=== PATIENT | male | born 1995 | race Caucasian/White ===

== ENCOUNTER → 2016-08-05 | Day surgery (SDC) | payer BC, OTHER ==
[2016-07-29 14:05] VITALS: Ht 200.7 cm; Wt 159.1 kg
[~2016-08-05] VITALS: Ht 200.7 cm; Wt 159.1 kg
[~2016-08-05] MED LIST: ADAL40KI SC; FENTANYL CITRATE INJ 50 MCG/1 ML 2 ML VIAL ONE; LIDOCAINE HCL 2% 2 ML VIAL (20MG/ML) ONE; MRC50 PO; PROPOFOL IV EMULSION 10 MG/ML 20 ML VIAL IV ONE; SODIUM CHLORIDE 0.9% 500ML 500 ML IV ONE; SYMIN/8045 INH
--- NOTE | 2016-08-05 14:51 | Endo History and Physical ---
History & Physical Date of Service: August 05, 2016. Chief Complaint: Crohn's Disease Referring Physician: Live Tafoya History of Present Illness 21 yo CM who presents for Colonoscopy secondary to Crohn's Disease. Past Surgical History Hx Cardiac Surgery: No Hx Internal Defibrillator: No Hx Pacemaker: No Hx Abdominal Surgery: No Hx of Implantable Prosthesis: No Hx Post-Op Nausea and Vomiting: No Hx Cancer Surgery: No Hx Thoracic Surgery: No Hx Orthopedic: Yes (RT THIGH BIOPSY, LT ANKLE SURGERY WITH HARDWARE) Hx Urinary Tract Surgery: No Family History None Social History Smoking Status: Never Smoker Hx Substance Use: No Hx Alcohol Use: No Allergies Coded Allergies: Diphenhydramine (Verified Allergy, Mild, swollen throat, 07/29/16) NUTS (Verified Allergy, Unknown, THROAT SWELLING, 07/29/16) Current Medications Reported Home Medications Medications Dose Route/Sig Max Daily Dose Days Date Category Humira Pen (Adalimumab) 40 Mg/0.8 Ml Kit 40 Mg SC [id number] 07/29/16 Reported Mercaptopurine 50 Mg Tab 2 Tabs PO QAM 11/09/15 Reported Symbicort 80/4.5 Inhaler (Budesonide/Formoterol Fumarate) Unknown Strength Aero 1 Puffs INH BID 11/09/15 Reported Vital Signs Weight (Kilograms): 159.09 Height (Feet): 6 Height (Inches): 7 Physical Exam General Appearance: WD/WN, no apparent distress Respiratory/Chest: Auscultation: breath sounds normal Cardiovascular: Heart Auscultation: RRR Abdomen: Bowel Sounds: normal Inspection & Palpation: soft, non-distended, no tenderness, guarding & rebound Assessment and Plan Assessment: 21 yo CM who presents for Colonoscopy secondary to Crohn's Disease. Plan: Proceed with colonoscopy
--- NOTE | 2016-08-05 16:12 | GI REPORT ---
Procedure Date: 08/05/2016 3:20 PM Procedure: Colonoscopy Indications: Disease activity assessment of Crohn's disease of the small bowel and colon Medicines: Monitored Anesthesia Care Complications: No immediate complications. Estimated Blood Loss: Estimated blood loss: none. Procedure: Pre-Anesthesia Assessment: - Prior to the procedure, a History and Physical was performed, and patient medications and allergies were reviewed. The patient's tolerance of previous anesthesia was also reviewed. The risks and benefits of the procedure and the sedation options and risks were discussed with the patient. All questions were answered, and informed consent was obtained. Prior Anticoagulants: The patient has taken no previous anticoagulant or antiplatelet agents. ASA Grade Assessment: III - A patient with severe systemic disease. After reviewing the risks and benefits, the patient was deemed in satisfactory condition to undergo the procedure. After I obtained informed consent, the scope was passed under direct vision. Throughout the procedure, the patient's blood pressure, pulse, and oxygen saturations were monitored continuously. The scope was introduced through the anus and advanced to the terminal ileum. The colonoscopy was performed without difficulty. The patient tolerated the procedure well. The quality of the bowel preparation was good. The terminal ileum, ileocecal valve, appendiceal orifice, and rectum were photographed. Findings: Localized inflammation, moderate in severity and characterized by aphthous ulcerations was found in the terminal ileum. Biopsies were taken with a cold forceps for histology. Inflammation characterized by pseudopolyps was found as medium-sized patches surrounded by normal mucosa in the descending colon. This was mild in severity. Biopsies were taken with a cold forceps for histology. Non-bleeding internal hemorrhoids were found during retroflexion. The hemorrhoids were small. Impression: - Crohn's disease, with ileitis and colitis. Biopsied. - Inflammation was found in the descending colon secondary to Crohn's disease, with ileitis and colitis. Biopsied. - Non-bleeding internal hemorrhoids. Recommendation: - Resume previous diet. - Continue present medications. - Repeat colonoscopy for surveillance based on pathology results. - Return to primary care physician as previously scheduled. Russell Morales DO 08/05/2016 4:12:43 PM This report has been signed electronically. Note Initiated On: 08/05/2016 3:20 PM I attest to the content of the Intraoperative Record and orders documented therein, exceptions below
--- NOTE | 2016-08-05 16:13 | Discharge Instructions ---
Endoscopy Patient Instructions Date / Procedure(s) Performed August 05, 2016. Colonoscopy Allergy Information Coded Allergies: Diphenhydramine (Verified Allergy, Mild, swollen throat, 07/29/16) NUTS (Verified Allergy, Unknown, THROAT SWELLING, 07/29/16) Discharge Date / Findings August 05, 2016. Crohn's Ileocolitis s/p biopsies Internal hemorrhoids Medication Instructions OK to resume all medications today as prescribed Reported Home Medications Medications Dose Route/Sig Max Daily Dose Days Date Category Humira Pen (Adalimumab) 40 Mg/0.8 Ml Kit 40 Mg SC [id number] 07/29/16 Reported Mercaptopurine 50 Mg Tab 2 Tabs PO QAM 11/09/15 Reported Symbicort 80/4.5 Inhaler (Budesonide/Formoterol Fumarate) Unknown Strength Aero 1 Puffs INH BID 11/09/15 Reported Provider Instructions Activity Restrictions - No exercising or heavy lifting for 24 hours. - Do not drink alcohol the day of the procedure. - Do not drive a car or operate machinery until the day after the procedure. - Do not make any important decisions or sign important papers in 24 hours after the procedure. Following Day: - Return to full activity which may include returning to work/school. Diet Start your diet with liquids and light foods (jello, soup, juice, toast). Then eat your usual diet if not nauseated. Treatment For Common After Affects For mild abdominal pain, bloating, or excessive gas: - Rest - Eat lightly - Lie on right side Follow-Up Information Follow-up with Live Tafoya as scheduled Anesthesia Information What You Should Know You have had a procedure that required some medicine to reduce anxiety and discomfort. This treatment is called moderate sedation. After receiving the treatment, you may be sleepy, but you will be able to breathe on your own. The effects of the treatment may last for several hours. Follow these instructions along with Activity/Diet recommendations noted above: * Do NOT do anything where dizziness or clumsiness would be dangerous. * Rest quietly at home today, then you can be up and about tomorrow. * Have a responsible person stay with you the rest of today. * You may have had an I.V. today. If so, you may take the dressing off later today. Recommendations Call your doctor if: * Trouble breathing * Continuous vomiting for more than 24 hours * Temperature above 101 degrees * Severe abdominal pain or bloating * Pain not relieved by pain medicine ordered * There is increased drainage or redness from any incision * A large amount of rectal bleeding greater than 2-3 tablespoons. (If you had a polyp/s removed or have hemorrhoids, a small amount of blood - from the rectum is to be expected.) * You have any unanswered questions or concerns. IN THE EVENT OF A SERIOUS EMERGENCY, GO TO THE NEAREST EMERGENCY ROOM Your discharge instructions were prepared by provider Russell Morales. Patient Instructions Signature Page Momo Dale Patient (or Guardian) Signature/Date: I have read and understand the instructions given to me by my caregivers. Caregiver/RN/Doctor Signature/Date: The above-named patient and/or guardian has received patient instructions on this date. + Original Patient Signature Page (only) stays with chart. Please make copy for patient.
[2016-08-05 16:41] VITALS: BP 127/84; PULSE 55; O2SAT 96
--- NOTE | 2016-08-05 16:49 | Anesthesiology Progress Note ---
Anesthesia Post Op Note Date & Time August 05, 2016 at 16:48 Vital Signs Pain Intensity: 0 Vital Signs Past 12 Hours Date Time Temp Pulse Resp B/P Pulse Ox O2 Delivery O2 Flow Rate FiO2 08/05/16 16:41 55 16 127/84 96 Room Air 08/05/16 16:26 67 16 147/77 97 Room Air 08/05/16 16:11 55 16 111/57 96 Room Air 08/05/16 14:59 36.7 64 20 157/76 97 Room Air Notes Mental Status: alert / awake / arousable, participated in evaluation Pt Amnestic to Procedure: Yes Nausea / Vomiting: adequately controlled Pain: adequately controlled Airway Patency, RR, SpO2: stable & adequate BP & HR: stable & adequate Hydration State: stable & adequate Anesthetic Complications: no major complications apparent
== END | disposition home or self-care (01) ==
LOC: C.GI 14:31
PROVIDERS: ATTEND Internal Medicine
DX: K50.90 Crohn's disease, unspecified, without complications (principal); K64.8 Other hemorrhoids; K63.3 Ulcer of intestine; K52.9 Noninfective gastroenteritis and colitis, unspecified

== ENCOUNTER → 2016-12-25 | Outpatient (CLI) | payer OTHER ==
[~2016-12-25] MED LIST changes: -FENTANYL CITRATE INJ 50 MCG/1 ML 2 ML VIAL ONE; -LIDOCAINE HCL 2% 2 ML VIAL (20MG/ML) ONE; -PROPOFOL IV EMULSION 10 MG/ML 20 ML VIAL IV ONE; -SODIUM CHLORIDE 0.9% 500ML 500 ML IV ONE
--- NOTE | 2016-12-25 17:02 | DIAGNOSTIC IMAGING REPORT ---
L ANKLE MIN 3 VIEWS ROUTINE CLINICAL HISTORY: Left ankle pain. COMPARISON: Left ankle radiographs October 12, 2015. FINDINGS: Distal left fibular plate and screws are noted. There are also 2 medial malleolar screws. Postoperative appearance is unchanged since exam of October 12, 2015. The hardware is intact. There is no acute fracture. Healed distal left tibial and fibular fractures are present. There is no ankle mortise widening. There is mild posterior calcaneal spurring. The talar dome is intact. IMPRESSION: 1. No acute fracture or dislocation of the left ankle. 2. Unchanged postoperative appearance since exam of October 12, 2015 status post distal left fibular and tibial internal fixation. Healed fractures with intact hardware. Electronically signed by: Momo Del Angel M.D. 12/25/2016 5:01 PM Dictated Date/Time: 12/25/2016 4:59 PM
== END | disposition home or self-care (01) ==
LOC: C.RADBC 15:52
PROVIDERS: ATTEND Nurse Practitioner Adult Health
DX: M25.572 Pain in left ankle and joints of left foot (principal)

== ENCOUNTER 2017-05-18 23:38 | Emergency (ER) | payer OTHER ==
[~2017-05-18] VITALS: Ht 200.7 cm; Wt 157.6 kg
[2017-05-18 23:40] VITALS: TEMP 36.8; Ht 200.7 cm; Wt 157.6 kg
[2017-05-19] MEDS ORDERED: ALUMINUM/MAGNESIUM SUSP 30 ML UDC PO STA (00:05)
--- NOTE | 2017-05-19 00:15 | EMERGENCY ROOM VISIT NOTE ---
History Report prepared by Jose: Woo Trevino Under the Supervision of: Dr. Adwoa Chauhan D.O. First contact with patient: 23:44 Chief Complaint: CHEST PAIN Stated Complaint: PAIN IN CHEST,NUMBNESS IN LEFT ARM History of Present Illness The patient is a 21 year old male who presents to the Emergency Room with complaints of waxing and waning upper left chest numbness beginning three hours ago. The patient states that he experienced chest pain a few years ago, and was told by his doctor that the sac around his heart was inflamed. He notes that because of this, he occasionally feels a "tingle" in his chest that goes away on its own after a few minutes. He reports that his current symptoms feel the same as they usually do, but states that the duration of his symptoms prompted him to come to the emergency department tonight. He notes that his numbness radiates up to his left shoulder and then down his left arm. He reports that his numbness also occasionally radiates to his back. He also complains of nausea. The patient states that he had a sore throat, head cold, fever, diaphoresis, and cough a few nights ago, but notes that he felt better when he woke up the next day. He reports that he has a history of asthma and Crohn's disease, but denies any history of reflux. Pt denies dizziness, lightheadedness , SOB, swelling, rashes, headache, change in vision, vomiting, diarrhea, pain with urination, and melena. Source of History: patient Onset: three hours ago Position: chest Quality: numbness Timing: waxes/wanes Associated Symptoms: + fevers, + diaphoresis, + sorethroat, + cough, + nausea, No headache, No SOB, No vomiting, No melena, No diarrhea, No urinary symptoms, No rash Note: He complains of left shoulder and left arm numbness as well as occasional back numbness. He also complains of a head cold a few days ago. He denies any dizziness, lightheadedness, swelling, and change in vision. Review of Systems See HPI for pertinent positives & negatives. A total of 10 systems reviewed and were otherwise negative. Past Medical & Surgical Medical Problems: (1) Abdominal pain (2) Asthma (3) Crohns disease Family History Diabetes mellitus Hypertension Social History Smoking Status: Never Smoker Alcohol Use: none Marital Status: single Housing Status: lives alone Occupation Status: student Current/Historical Medications Scheduled Adalimumab (Humira Pen), 40 MG SC [id number] Budesonide/Formoterol Fumarate (Symbicort 80/4.5 Inhaler), 1 PUFFS INH BID Mercaptopurine (Mercaptopurine), 100 MG PO QAM Allergies Coded Allergies: Diphenhydramine (Verified Allergy, Severe, "THROAT SWELLS", 05/19/17) NUTS (Verified Allergy, Severe, "THROAT SWELLS", 05/19/17) Physical Exam Vital Signs Date Time Temp Pulse Resp B/P (MAP) Pulse Ox O2 Delivery O2 Flow Rate FiO2 05/19/17 03:11 51 16 144/63 98 Room Air 05/19/17 03:03 62 05/19/17 02:00 58 16 157/104 98 Room Air 05/19/17 01:12 64 16 139/79 98 Room Air 05/18/17 23:55 56 05/18/17 23:40 36.8 54 18 146/80 98 Room Air Physical Exam GENERAL: alert, well appearing, well nourished, no distress, non-toxic EYE EXAM: normal conjunctiva, PERRL and EOM's grossly intact OROPHARYNX: no exudate, no erythema, lips, buccal mucosa, and tongue normal and mucous membranes are moist NECK: supple, no nuchal rigidity, no adenopathy, non-tender LUNGS: Clear to auscultation. Normal chest wall mechanics, no wheezes, rhonchi, and rales. HEART: no murmurs, S1 normal and S2 normal CHEST: No reproducible chest wall tenderness. ABDOMEN: abdomen soft, non-tender, normo-active bowel sounds, no masses, no rebound or guarding. BACK: Back is symmetrical on inspection and there is no deformity, no midline tenderness, no CVA tenderness. SKIN: no rashes and no bruising UPPER EXTREMITIES: upper extremities are grossly normal. LOWER EXTREMITIES: No pitting edema. NEURO EXAM: Normal sensorium, cranial nerves II-XII grossly intact, normal speech, no gross weakness of arms, no gross weakness of legs. Medical Decision & Procedures ER Provider Diagnostic Interpretation: Radiology results have been interpreted and reviewed by me. CHEST X-RAY: No cardiomegaly. No effusions. No wide mediastinum. Slightly increased perihilar markings, however no overall significant change compared to prior. Laboratory Results 05/18/17 23:58 Red Blood Count 4.85, Mean Corpuscular Volume 83.5, Mean Corpuscular Hemoglobin 28.2, Mean Corpuscular Hemoglobin Concent 33.8, Mean Platelet Volume 9.4, Neutrophils (%) (Auto) 57.8, Lymphocytes (%) (Auto) 32.5, Monocytes (%) (Auto) 7.5, Eosinophils (%) (Auto) 1.6, Basophils (%) (Auto) 0.2, Neutrophils # (Auto) 5.44, Lymphocytes # (Auto) 3.06, Monocytes # (Auto) 0.71, Eosinophils # (Auto) 0.15, Basophils # (Auto) 0.02 05/18/17 23:58 Test 05/18/17 23:58 White Blood Count 9.42 K/uL (4.8-10.8) Red Blood Count 4.85 M/uL (4.7-6.1) Hemoglobin 13.7 g/dL (14.0-18.0) Hematocrit 40.5 % (42-52) Mean Corpuscular Volume 83.5 fL (80-100) Mean Corpuscular Hemoglobin 28.2 pg (25-34) Mean Corpuscular Hemoglobin Concent 33.8 g/dl (32-36) Platelet Count 280 K/uL (130-400) Mean Platelet Volume 9.4 fL (7.4-10.4) Neutrophils (%) (Auto) 57.8 % Lymphocytes (%) (Auto) 32.5 % Monocytes (%) (Auto) 7.5 % Eosinophils (%) (Auto) 1.6 % Basophils (%) (Auto) 0.2 % Neutrophils # (Auto) 5.44 K/uL (1.4-6.5) Lymphocytes # (Auto) 3.06 K/uL (1.2-3.4) Monocytes # (Auto) 0.71 K/uL (0.11-0.59) Eosinophils # (Auto) 0.15 K/uL (0-0.5) Basophils # (Auto) 0.02 K/uL (0-0.2) RDW Standard Deviation 39.4 fL (36.4-46.3) RDW Coefficient of Variation 13.1 % (11.5-14.5) Immature Granulocyte % (Auto) 0.4 % Immature Granulocyte # (Auto) 0.04 K/uL (0.00-0.02) D-Dimer < 190 ug/L FEU (0-500) Anion Gap 5.0 mmol/L (3-11) Est Creatinine Clear Calc Drug Dose 189.6 ml/min Estimated GFR () 118.4 Estimated GFR (Non- 102.2 BUN/Creatinine Ratio 12.4 (10-20) Calcium Level 8.8 mg/dl (8.5-10.1) Magnesium Level 2.2 mg/dl (1.8-2.4) Total Bilirubin 0.4 mg/dl (0.2-1) Aspartate Amino Transf (AST/SGOT) 17 U/L (15-37) Alanine Aminotransferase (ALT/SGPT) 46 U/L (12-78) Alkaline Phosphatase 70 U/L (45-117) Troponin I < 0.015 ng/ml (0-0.045) Pro-B-Type Natriuretic Peptide 20 pg/ml (0-450) Total Protein 8.1 gm/dl (6.4-8.2) Albumin 3.6 gm/dl (3.4-5.0) Globulin 4.5 gm/dl (2.5-4.0) Albumin/Globulin Ratio 0.8 (0.9-2) Laboratory results per my review. Medications Administered Medications (Trade) Dose Ordered Sig/Santiago Route Start Time Stop Time Status Last Admin Dose Admin Al Hydroxide/Mg Hydroxide (Maalox Susp) 30 ml NOW STAT PO 05/19/17 00:05 05/19/17 00:08 DC 05/19/17 00:14 30 ML Ketorolac Tromethamine (Toradol Inj) 15 mg NOW STAT IV 05/19/17 01:56 05/19/17 01:57 DC 05/19/17 01:58 15 MG ECG Per My Interpretation Indication: chest pain Rate (beats per minute): 53 Rhythm: sinus bradycardia Findings: no acute ischemic change, no ectopy, other (Normal axis, normal intervals) ED Course 2351: The patient was evaluated in room B5. A complete history and physical exam was performed. 0005: Maalox Susp 30ml PO 0132: I reevaluated and updated the patient. He is still feeling numbness in his chest. 0136: Toradol Inj 30mg IV 0156: Toradol Inj 15mg IV 0257: I rechecked the patient. His pain is now gone since his dose of Toradol. 0307: I performed a bedside echo. The patient has no pericardial effusion and has grossly normal EF. 0319: Upon reevaluation, the patient is feeling better. I discussed the findings and the treatment plan with the patient. He verbalizes agreement and understanding. The patient was discharged home. Medical Decision Differential diagnosis: Etiologies such as cardiac ischemia, aortic dissection, pulmonary embolism, pneumonia, pneumothorax, musculoskeletal, infections, pericarditis, myocarditis , esophageal rupture, gastrointestinal, as well as others were entertained. Heart score 0 Low risk Wells and Perc negative, dimer negative Patient well-appearing here, mildly immunocompromised due to Humira for his Crohn's disease. Patient presents with atypical left-sided chest pain. Labs and imaging reassuring. Bedside ultrasound reassuring. Symptoms resolved with small dose of anti-inflammatory. Patient instructed not to continue use of anti -inflammatories due to his history of Crohn's disease and current Humira use. Patient aware of this and had been told this previously. Discussed with patient follow-up with family doctor as a precaution given atypical nature of presentation tonight and possible need for additional cardiology evaluation. Patient well-appearing at time of discharge, with no symptoms, tolerating p.o., ambulating with a steady gait. Vital signs stable throughout. I do not suspect ACS, dissection, PE, tamponade, pericardial effusion, I have a low suspicion for pericarditis/myocarditis, doubt other occult infectious etiology, no evidence of pneumothorax or effusion. Discussed with patient other possible differential diagnoses. Discussed with patient symptoms to watch and return for , he verbalized understanding was agreeable with plan. Medication Reconcilliation Current Medication List: was personally reviewed by me Blood Pressure Screening Patient's blood pressure: Elevated blood pressure Blood pressure disposition: Elevated BP felt to be situational Impression Primary Impression: Chest pain Scribe Attestation The scribe's documentation has been prepared under my direction and personally reviewed by me in its entirety. I confirm that the note above accurately reflects all work, treatment, procedures, and medical decision making performed by me. Departure Information Dispostion Home / Self-Care Referrals No Doctor, Assigned (PCP) Forms HOME CARE DOCUMENTATION FORM, IMPORTANT VISIT INFORMATION Patient Instructions My [facility] Additional Instructions Please call and follow-up with your family doctor. If you have any recurrent pain, develop fevers, trouble breathing, dizziness/lightheadedness, vomiting, neck or back pain, or you have any other new or concerning symptoms, please return the emergency room. Please continue your regular medications as prescribed. Problem Qualifiers Primary Impression: Chest pain Chest pain type: unspecified Qualified Codes: R07.9 - Chest pain, unspecified
[2017-05-19 00:36] LABS: BASO % 0.2 %; BASO ABS # 0.02 K/uL (0-0.2); EOS % 1.6 %; EOS ABS # 0.15 K/uL (0-0.5); HEMATOCRIT 40.5 % (42-52); HEMOGLOBIN 13.7 g/dL (14.0-18.0); IG# 0.04 K/uL (0.00-0.02); LYMPH % 32.5 %; LYMPH ABS # 3.06 K/uL (1.2-3.4); MEAN CELL VOLUME 83.5 fL (80-100); MEAN CORPUSCULAR HEMOGLOBIN 28.2 pg (25-34); MEAN CORPUSCULAR HGB CONC 33.8 g/dl (32-36); MEAN PLATELET VOLUME 9.4 fL (7.4-10.4); MONO % 7.5 %; MONO ABS # 0.71 K/uL (0.11-0.59); NEUT % 57.8 %; NEUT ABS # 5.44 K/uL (1.4-6.5); PLATELET COUNT 280 K/uL (130-400); RED CELL DISTRIBUTION WIDTH CV 13.1 % (11.5-14.5); RED CELL DISTRIBUTION WIDTH SD 39.4 fL (36.4-46.3); WHITE BLOOD COUNT 9.42 K/uL (4.8-10.8)
[2017-05-19 01:13] LABS: ALBUMIN 3.6 gm/dl (3.4-5.0); ALT/SGPT 46 U/L (12-78); BLOOD UREA NITROGEN 13 mg/dl (7-18); CALCIUM 8.8 mg/dl (8.5-10.1); CARBON DIOXIDE 28 mmol/L (21-32); CREATININE 1.04 mg/dl (0.60-1.40); GLUCOSE 80 mg/dl (70-99); POTASSIUM 3.9 mmol/L (3.5-5.1); SODIUM 136 mmol/L (136-145)
[2017-05-19 01:18] LABS: ALKALINE PHOSPHATASE 70 U/L (45-117); AST/SGOT 17 U/L (15-37); TOTAL PROTEIN 8.1 gm/dl (6.4-8.2)
[2017-05-19] MEDS ORDERED: KETOROLAC TROMETHAMINE 30 MG/ML VIAL IV STA (01:36)
[2017-05-19] MEDS ORDERED: KETOROLAC TROMETHAMINE 15 MG/ML VIAL IV STA (01:56)
[2017-05-19 03:11] VITALS: BP 144/63; PULSE 51; O2SAT 98
--- NOTE | 2017-05-19 06:35 | DIAGNOSTIC IMAGING REPORT ---
CHEST ONE VIEW PORTABLE CLINICAL HISTORY: Atypical chest pain COMPARISON STUDY: No previous studies for comparison. FINDINGS: The cardiac and mediastinal contours are normal. There is no evidence of focal pulmonary consolidation. There is no evidence of failure. No pleural effusions are visualized.[ IMPRESSION: No active disease in the chest. Electronically signed by: Catracho Ugalde M.D. 05/19/2017 6:34 AM Dictated Date/Time: 05/19/2017 6:34 AM
== END 2017-05-19 03:16 | disposition home or self-care (01) ==
LOC: C.EDB 23:39
DX: R07.9 Chest pain, unspecified (principal); R20.0 Anesthesia of skin; R00.1 Bradycardia, unspecified; K50.90 Crohn's disease, unspecified, without complications; J45.909 Unspecified asthma, uncomplicated; Z79.4 Long term (current) use of insulin; Z79.899 Other long term (current) drug therapy; Z82.49 Family history of ischemic heart disease and other diseases of the circulatory system; Z83.3 Family history of diabetes mellitus; Z88.8 Allergy status to other drugs, medicaments and biological substances; Z91.010 Allergy to peanuts